=== PATIENT | female | born 2000 | race Hispanic/Latino ===

== ENCOUNTER 2022-01-30 23:08 | Emergency (ER) | payer OTHER | END 2022-01-30 23:52 | disposition admitted as inpatient to this hospital (09) | LOC: ERS 23:08 | DX: O26.893 Other specified pregnancy related conditions, third trimester (principal); R10.30 Lower abdominal pain, unspecified; Z3A.38 38 weeks gestation of pregnancy | CPT/HCPCS: 99284 ==